=== PATIENT | male | born 2000 | race Caucasian/White ===

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

== ENCOUNTER → 2019-09-11 | Outpatient (CLI) | payer OTHER ==
[2019-09-11 12:01] LABS: Basophils % (A) 0 %; Eosinophils % (A) 1 %; HCT 46.3 % (39.0-53.0); HGB 14.9 gm/dL (13.0-17.5); Lymphocytes # (A) 1.7 k/uL (1.0-4.8); Lymphocytes % (A) 36 %; MCH 28.2 pg (25.0-35.0); MCHC 32.2 g/dL (31.0-37.0); MCV 87.8 fL (80.0-100.0); Mean Platelet Volume 7.8; Monocytes # (A) 0.3 k/uL (0-1.0); Monocytes % (A) 7 %; Neutrophils # (A) 2.6 k/uL (1.3-7.7); Neutrophils % (A) 53 %; Platelet Count 225 k/uL (150-450); RBC 5.28 m/uL (4.30-5.90); RDW 11.9 % (11.5-15.5); WBC 4.8 k/uL (4.0-11.0)
[2019-09-11 17:24] LABS: Albumin 4.5 g/dL (3.80-4.90); Albumin/Globulin Ratio 2.5 (1.60-3.17); Anion Gap 8.9 mmol/L (4.00-12.00); BUN/Creat Ratio 12.22 Ratio (12.00-20.00); Calcium 9.8 mg/dL (8.7-10.3); Carbon Dioxide 30.1 mmol/L (21.6-31.8); Globulin 1.8 g/dL (1.6-3.3); Non-African American GFR(CKD) 123.4 (60.0-200.0); Potassium 4.3 mmol/L (3.5-5.5); Total Bilirubin 0.3 mg/dL (0.2-1.2); Total Protein 6.3 g/dL (6.2-8.2)
== END | disposition home or self-care (01) ==
LOC: LABWHC1 10:22
PROVIDERS: ATTEND Family Medicine
DX: F84.0 Autistic disorder (principal)
CPT/HCPCS: 36415; 80053; 84443; 85025

== ENCOUNTER → 2020-11-27 | Outpatient (CLI) | payer OTHER ==
[2020-11-27 19:51] LABS: Basophils # (A) 0.01 X 10*3/uL (0.00-0.10); Basophils % (A) 0.2 %; Eosinophils # (A) 0.05 X 10*3/uL (0.04-0.35); HCT 49.8 % (39.6-50.0); HGB 15.9 g/dL (13.0-17.0); Lymphocytes # (A) 1.96 X 10*3/uL (0.90-5.00); Lymphocytes % (A) 40.3 %; MCH 27.7 pg (27.0-32.0); MCHC 31.9 g/dL (32.0-37.0); MCV 86.9 fL (80.0-97.0); Monocytes # (A) 0.44 X 10*3/uL (0.20-1.00); Monocytes % (A) 9.1 %; Neutrophils # (A) 2.38 X 10*3/uL (1.80-7.70); Platelet Count 280 X 10*3/uL (140-440); RBC 5.73 X 10*6/uL (4.40-5.60); RDW 12.4 % (11.5-14.5); WBC 4.86 X 10*3/uL (4.50-10.00)
[2020-11-27 21:27] LABS: Hemoglobin A1C 5.4 % (4.0-6.0)
[2020-11-28 02:57] LABS: ALT 16 U/L (10-49); AST 16 U/L (14-35); African American GFR (CKD) 110.6 (60.0-200.0); Albumin/Globulin Ratio 2.39 (1.60-3.17); Alkaline Phosphatase 99 U/L (41-126); Bilirubin, Conjugated <0.20 mg/dL (0.20-0.40); Chol/HDL Ratio 3.64; Cholesterol 182 mg/dL (0-200); Globulin 2.3 g/dL (1.6-3.3); Glucose 120 mg/dL (70-110); LDL Cholesterol,Calculated 121.4 mg/dL (0.0-131.0); Non-African American GFR(CKD) 95.5 (60.0-200.0); Total Bilirubin 0.3 mg/dL (0.3-1.2); Total Protein 7.8 g/dL (6.2-8.2)
== END | disposition home or self-care (01) ==
LOC: LABWHC1 11:02
PROVIDERS: ATTEND Nurse Practitioner Family
DX: Z79.899 Other long term (current) drug therapy (principal)
CPT/HCPCS: 36415; 80061; 80076; 82565; 82947; 83036; 84439; 84443; 84520; 85025; 93005

== ENCOUNTER → 2021-09-03 | Outpatient (CLI) | payer MEDICARE, OTHER ==
[2021-09-03 15:06] LABS: Basophils # (A) 0.02 X 10*3/uL (0.00-0.10); Basophils % (A) 0.5 %; Eosinophils # (A) 0.12 X 10*3/uL (0.04-0.35); Eosinophils % (A) 3.1 %; HCT 43.8 % (39.6-50.0); HGB 13.7 g/dL (13.0-17.0); Immature Grans, Automated 0.3 %; Lymphocytes # (A) 1.36 X 10*3/uL (0.90-5.00); Lymphocytes % (A) 34.9 %; MCH 27.5 pg (27.0-32.0); MCHC 31.3 g/dL (32.0-37.0); MCV 87.8 fL (80.0-97.0); Mean Platelet Volume 10.1 fL (9.5-12.2); Monocytes % (A) 10.3 %; NRBC Per 100 WBC 0 /100 WBCS (0.0-0.0); Neutrophils # (A) 1.99 X 10*3/uL (1.80-7.70); Neutrophils % (A) 50.9 %; Platelet Count 256 X 10*3/uL (140-440); RBC 4.99 X 10*6/uL (4.40-5.60); RDW 12.5 % (11.5-14.5)
[2021-09-03 15:29] LABS: African American GFR (CKD) 124.1 (60.0-200.0); Albumin 4.5 g/dL (3.8-4.9); Albumin/Globulin Ratio 2.25 (1.60-3.17); Anion Gap 10.2 mmol/L (10.00-18.00); BUN/Creat Ratio 12.7 Ratio (12.00-20.00); Blood Urea Nitrogen 12.7 mg/dL (9.0-27.0); Calcium 9.4 mg/dL (8.7-10.3); Carbon Dioxide 27.8 mmol/L (20.0-27.5); Non-African American GFR(CKD) 107.1 (60.0-200.0); Potassium 4.5 mmol/L (3.5-5.5); Total Bilirubin 0.3 mg/dL (0.30-1.20); Total Protein 6.5 g/dL (6.2-8.2)
== END | disposition home or self-care (01) ==
LOC: LABWHC1 08:27
PROVIDERS: ATTEND Family Medicine
DX: Z00.00 Encounter for general adult medical examination without abnormal findings (principal); E55.9 Vitamin D deficiency, unspecified
CPT/HCPCS: 36415; 80053; 82306; 84443; 85025

== ENCOUNTER 2021-11-06 11:39 | Emergency (ER) | payer MEDICARE, OTHER ==
[2021-11-06 11:44] VITALS: BP 107/40; TEMP 98.6
[2021-11-06] MEDS ORDERED: IBUPROFEN 600 MG TAB PO STA (13:05)
[2021-11-06 13:19] VITALS: PULSE 97; RESP 16
--- NOTE | 2021-11-06 14:37 | XR ---
EXAMINATION TYPE: XR chest 2V DATE OF EXAM: 11/06/2021 COMPARISON: 03/21/2004 HISTORY: cough TECHNIQUE: Frontal and lateral views of the chest are obtained. FINDINGS: There is no focal air space opacity. No evidence for pneumothorax. No pleural effusion. The cardiac silhouette size is within normal limits. The osseous structures are grossly intact. IMPRESSION: 1. No acute cardiopulmonary process.
--- NOTE | 2021-11-06 15:06 | ED ---
Headache HPI - General Chief Complaint: Headache Stated Complaint: Headaches Time Seen by Provider: 11/06/21 12:50 Mode of arrival: ambulatory Limitations: no limitations - History of Present Illness Initial Comments: 20-year-old male past nuchal history of autism, ODD presents emergency Department with headache and a cough which started 2 days ago. States that the headache is not the worse headache of his life. Describes it as a 2 out of 10, dull and global. He has not attempted to take any medications for her symptoms. No associated fever. He denies any visual changes. No neck pain or stiffness. No head trauma recently. He denies any sick contacts with similar symptoms. The cough is nonproductive. No chest pain. No shortness of breath. No previous history of pulmonary or cardiac issues. No history of DVT or PE. No other alleviating, precipitating or modifying factors - Related Data Home Medications Medication Instructions Recorded Confirmed ARIPiprazole [Abilify] 2 mg PO QAM 03/06/16 03/06/16 Dexmethylphenidate HCl [Focalin Xr] 30 mg PO DAILY 03/06/16 03/06/16 Melatonin 9 mg PO HS 03/06/16 03/06/16 QUEtiapine [SEROquel] 150 mg PO BID 03/06/16 03/06/16 QUEtiapine [SEROquel] 200 mg PO HS 03/06/16 03/06/16 Sertraline HCl [Zoloft] 200 mg PO QAM 03/06/16 03/06/16 bisacodyL [Dulcolax] 20 mg PO DAILY 03/06/16 03/06/16 cloNIDine HCL [Catapres] 0.4 mg PO 03/06/16 03/06/16 Previous Rx's Medication Instructions Recorded Albuterol Inhaler [Ventolin Hfa 1 puff INHALATION RT-QID #8 gm 11/06/21 Inhaler] Benzonatate [Tessalon Perles] 100 mg PO TID PRN #15 cap 11/06/21 Ibuprofen [Motrin] 600 mg PO Q6HR PRN #20 tab 11/06/21 Allergies Allergy/AdvReac Type Severity Reaction Status Date / Time amoxicillin trihydrate Allergy Rash/Hives Verified 11/06/21 11:44 [From Augmentin] potassium clavulanate Allergy Rash/Hives Verified 11/06/21 11:44 [From Augmentin] lorazepam [From Ativan] AdvReac Unknown Verified 11/06/21 11:44 midazolam HCl [From Versed] AdvReac Unknown Verified 11/06/21 11:44 Review of Systems ROS Statement: Those systems with pertinent positive or pertinent negative responses have been documented in the HPI. ROS Other: All systems not noted in ROS Statement are negative. Past Medical History Additional Past Medical History / Comment(s): Autism, ODD History of Any Multi-Drug Resistant Organisms: None Reported Past Surgical History: No Surgical Hx Reported Past Psychological History: ADD/ADHD, Anxiety, Depression Smoking Status: Vaper Past Alcohol Use History: None Reported Past Drug Use History: None Reported General Exam Limitations: no limitations General appearance: alert, in no apparent distress Head exam: Present: atraumatic, normocephalic, normal inspection Eye exam: Present: normal appearance, PERRL, EOMI. Absent: scleral icterus, conjunctival injection, periorbital swelling ENT exam: Present: normal exam, mucous membranes moist Neck exam: Present: normal inspection. Absent: tenderness, meningismus, lymphadenopathy Respiratory exam: Present: normal lung sounds bilaterally. Absent: respiratory distress, wheezes, rales, rhonchi, stridor Cardiovascular Exam: Present: normal rhythm, tachycardia, normal heart sounds. Absent: systolic murmur, diastolic murmur, rubs, gallop, clicks GI/Abdominal exam: Present: soft, normal bowel sounds. Absent: distended, tend erness, guarding, rebound, rigid Extremities exam: Present: normal inspection, full ROM, normal capillary refill. Absent: tenderness, pedal edema, joint swelling, calf tenderness Back exam: Present: normal inspection Neurological exam: Present: alert, oriented X3, CN II-XII intact Psychiatric exam: Present: normal affect, normal mood Skin exam: Present: warm, dry, intact, normal color. Absent: rash Course Vital Signs 11/06/21 11/06/21 11:41 13:18 Temperature 98.6 F Pulse Rate 114 H 97 Respiratory 20 16 Rate Blood Pressure 107/40 O2 Sat by Pulse 115 H 98 Oximetry Medical Decision Making - Medical Decision Making On arrival patient is placed in the hallway 10. A thorough history and physical exam was performed. Patient is given Motrin for his headache. He is swabbed for Coban which is negative. Chest x-rays performed which demonstrates no acute process. Patient is reevaluated and has complete resolution of his symptoms. He will be discharged home at this time is to follow-up with his primary care doctor in 2-4 days. He is given a prescription for an inhaler and Tessalon Perles for his cough. Return to the emergency room for any new or worsening symptoms here patient agreed with treatment plan and was discharged home in stable condition - Lab Data Lab Results 11/06/21 Range/Units 13:18 Coronavirus (PCR) Not Detected (Not Detectd) Disposition Clinical Impression: Headache, Cough Disposition: HOME SELF-CARE Condition: Stable Instructions (If sedation given, give patient instructions): Upper Respiratory Infection (ED), Acute Headache (ED) Additional Instructions: Pleast take the Motrin every 6 hours as needed for headache. Use the inhaler every 4 hours. Return to the emergency room for any new or worsening symptoms Prescriptions: Ibuprofen [Motrin] 600 mg PO Q6HR PRN #20 tab PRN Reason: Pain Benzonatate [Tessalon Perles] 100 mg PO TID PRN #15 cap PRN Reason: Cough Albuterol Inhaler [Ventolin Hfa Inhaler] 1 puff INHALATION RT-QID #8 gm Is patient prescribed a controlled substance at d/c from ED?: No Referrals: Ethan Mckeon MD [Primary Care Provider] - 1-2 days Time of Disposition: 15:06
== END 2021-11-06 15:32 | disposition home or self-care (01) ==
LOC: EC 11:39
DX: R51.9 Headache, unspecified (principal); R05.9 Cough, unspecified; F17.290 Nicotine dependence, other tobacco product, uncomplicated; Z88.0 Allergy status to penicillin; Z20.822 Contact with and (suspected) exposure to COVID-19; Z88.1 Allergy status to other antibiotic agents; Z88.8 Allergy status to other drugs, medicaments and biological substances
CPT/HCPCS: 71046; 87635; 99284

== ENCOUNTER → 2022-04-27 | Outpatient (CLI) | payer MEDICARE, OTHER ==
[2022-04-27 11:38] LABS: ALT 26 U/L (10-49); AST 24 U/L (14-35); African American GFR (CKD) 109.9 (60.0-200.0); Albumin 4.6 g/dL (3.8-4.9); Albumin/Globulin Ratio 2.09 (1.60-3.17); Alkaline Phosphatase 95 U/L (41-126); Bilirubin, Conjugated <0.20 mg/dL (0.20-0.40); Blood Urea Nitrogen 15.7 mg/dL (9.0-27.0); Chol/HDL Ratio 3.03 Ratio; Globulin 2.2 g/dL (1.6-3.3); Glucose 101 mg/dL (70-110); LDL Cholesterol,Calculated 82.9 mg/dL (0.0-131.0); Non-African American GFR(CKD) 94.8 (60.0-200.0); Total Bilirubin <0.15 mg/dL (0.30-1.20); Total Protein 6.8 g/dL (6.2-8.2); VLDL Calculation 14.94 mg/dL (5.00-40.00)
== END | disposition home or self-care (01) ==
LOC: LABWHC1 07:47
PROVIDERS: ATTEND Nurse Practitioner Family
DX: Z79.899 Other long term (current) drug therapy (principal)
CPT/HCPCS: 36415; 80061; 80076; 82565; 82947; 83036; 84439; 84443; 84520

== ENCOUNTER 2023-02-12 15:22 | Emergency (ER) | payer MEDICARE, OTHER ==
[2023-02-12 15:26] VITALS: BP 122/83; PULSE 105; RESP 20; TEMP 98
--- NOTE | 2023-02-12 15:39 | ED ---
General Adult HPI - General Chief complaint: Allergic Reaction Stated complaint: REACTION TO MEDS Time Seen by Provider: 02/12/23 15:28 Source: patient, RN notes reviewed, Caregiver Mode of arrival: ambulatory Limitations: no limitations - History of Present Illness Initial comments: 22-year-old male presents emergency department for medication ingestion. Patient is a group Flomax and received Ativan in which he was told he was ALLERGIC to the past. He states he was taken for several years and then once had a rash in which she was told it could be from the Ativan. He states he never had anaphylactic reaction no difficulty breathing or swallowing at that time. Patient received this medication over 45 minutes ago and had 0 symptoms. Patient denies difficulty swallowing breathing abdominal pain rash or any associated symptoms. He states he feels like he is at his normal baseline. - Related Data Home Medications Medication Instructions Recorded Confirmed ARIPiprazole [Abilify] 2 mg PO QAM 03/06/16 03/06/16 Dexmethylphenidate HCl [Focalin Xr] 30 mg PO DAILY 03/06/16 03/06/16 Melatonin 9 mg PO HS 03/06/16 03/06/16 QUEtiapine [SEROquel] 150 mg PO BID 03/06/16 03/06/16 QUEtiapine [SEROquel] 200 mg PO HS 03/06/16 03/06/16 Sertraline HCl [Zoloft] 200 mg PO QAM 03/06/16 03/06/16 bisacodyL [Dulcolax] 20 mg PO DAILY 03/06/16 03/06/16 cloNIDine HCL [Catapres] 0.4 mg PO HS 03/06/16 03/06/16 Previous Rx's Medication Instructions Recorded Albuterol Inhaler [Ventolin Hfa 1 puff INHALATION RT-QID #8 gm 11/06/21 Inhaler] Benzonatate [Tessalon Perles] 100 mg PO TID PRN #15 cap 11/06/21 Ibuprofen [Motrin] 600 mg PO Q6HR PRN #20 tab 11/06/21 Allergies Allergy/AdvReac Type Severity Reaction Status Date / Time amoxicillin trihydrate Allergy Rash/Hives Verified 02/12/23 15:26 [From Augmentin] potassium clavulanate Allergy Rash/Hives Verified 02/12/23 15:26 [From Augmentin] lorazepam [From Ativan] AdvReac Unknown Verified 02/12/23 15:26 midazolam HCl [From Versed] AdvReac Unknown Verified 02/12/23 15:26 Review of Systems ROS Statement: Those systems with pertinent positive or pertinent negative responses have been documented in the HPI. ROS Other: All systems not noted in ROS Statement are negative. Past Medical History Additional Past Medical History / Comment(s): Autism, ODD History of Any Multi-Drug Resistant Organisms: None Reported Past Surgical History: No Surgical Hx Reported Past Psychological History: ADD/ADHD, Anxiety, Depression Smoking Status: Vaper Past Alcohol Use History: None Reported Past Drug Use History: None Reported General Exam Limitations: no limitations General appearance: alert, in no apparent distress Head exam: Present: atraumatic, normocephalic, normal inspection Eye exam: Present: normal appearance, PERRL, EOMI. Absent: scleral icterus, conjunctival injection, periorbital swelling ENT exam: Present: normal exam, mucous membranes moist Neck exam: Present: normal inspection, full ROM. Absent: tenderness, meningismus, lymphadenopathy Respiratory exam: Present: normal lung sounds bilaterally. Absent: respiratory distress, wheezes, rales, rhonchi, stridor Cardiovascular Exam: Present: regular rate, normal rhythm, normal heart sounds. Absent: systolic murmur, diastolic murmur, rubs, gallop, clicks GI/Abdominal exam: Present: soft, normal bowel sounds. Absent: distended, tenderness, guarding, rebound, rigid Course Vital Signs 02/12/23 15:24 Temperature 98 F Pulse Rate 105 H Respiratory 20 Rate Blood Pressure 122/83 O2 Sat by Pulse 98 Oximetry Medical Decision Making - Medical Decision Making Was pt. sent in by a medical professional or institution (, PA, PUPPY SITTER, urgent care, hospital, or [facility]...) When possible be specific @ -No Did you speak to anyone other than the patient for history (EMS, parent, family, police, friend...)? What history was obtained from this source @ -Caregiver giving past alcohol history, medications given and current prescribed medications Did you review nursing and triage notes (agree or disagree)? Why? @ -I reviewed and agree with nursing and triage notes Were old charts reviewed (outside hosp., previous admission, EMS record, old EKG, old radiological studies, urgent care reports/EKG's, [facility] records)? Report findings @ -No old charts were reviewed Differential Diagnosis (chest pain, altered mental status, abdominal pain women, abdominal pain men, vaginal bleeding, weakness, fever, dyspnea, syncope, headache, dizziness, GI bleed, back pain, seizure, CVA, palpatations, mental health, musculoskeletal)? @ -Medication ingestion, reaction EKG interpreted by me (3pts min.). @ -[None X-rays interpreted by me (1pt min.). @ -None done CT interpreted by me (1pt min.). @ -None done U/S interpreted by me (1pt. min.). @ -None done What testing was considered but not performed or refused? (CT, X-rays, U/S, labs)? Why? @ -None What meds were considered but not given or refused? Why? @ -None Did you discuss the management of the patient with other professionals (professionals i.e. , PA, PUPPY SITTER, lab, RT, psych nurse, social secretary, department head college or university, teacher, medical corps officer, case management coordinator)? Give summary @ -No Was smoking cessation discussed for >3mins.? @ -No Was critical care preformed (if so, how long)? @ -No Were there social determinants of health that impacted care today? How? (Homelessness, low income, unemployed, alcoholism, drug addiction, transportation, low edu. Level, literacy, decrease access to med. care, intermediate, re hab)? @ -No Was there de-escalation of care discussed even if they declined (Discuss DNR or withdrawal of care, Hospice)? DNR status @ -No What co-morbidities impacted this encounter? (DM, HTN, Smoking, COPD, CAD, Cancer, CVA, ARF, Chemo, Hep., AIDS, mental health diagnosis, sleep apnea, morbid obesity)? @ -None Was patient admitted / discharged? Hospital course, mention meds given and route, prescriptions, significant lab abnormalities, going to OR and other pertinent info. @ -Discharge patient is taking Ativan in the past and was once thought to be ALLERGIC but it was unclear. Patient has no current symptoms. Patient is questioned be discharged to be fairly stable for discharge he is return for any change symptoms. Undiagnosed new problem with uncertain prognosis? @ -No Drug Therapy requiring intensive monitoring for toxicity (Heparin, Nitro, Insulin, Cardizem)? @ -No Were any procedures done? @ -No Diagnosis/symptom? @ -Accidental medication ingestion Acute, or Chronic, or Acute on Chronic? @ -Acute Uncomplicated (without systemic symptoms) or Complicated (systemic symptoms)? @ -Uncomplicated Side effects of treatment? @ -No Exacerbation, Progression, or Severe Exacerbation? @ -No Poses a threat to life or bodily function? How? (Chest pain, [place], [place], pneumonia, PE, COPD, DKA, ARF, appy, cholecystitis, CVA, Diverticulitis, Homicidal, Suicidal, threat to staff... and all critical care pts) @ -No Disposition Clinical Impression: Accidental drug ingestion Disposition: HOME SELF-CARE Condition: Stable Instructions (If sedation given, give patient instructions): Lorazepam (By mouth) Additional Instructions: Please return to the Emergency Department if symptoms worsen or any other concerns. Is patient prescribed a controlled substance at d/c from ED?: No Referrals: Ethan Mckeon [Primary Care Provider] - 1-2 days Time of Disposition: 15:39
== END 2023-02-12 16:03 | disposition home or self-care (01) ==
LOC: EC 15:22
DX: R21 Rash and other nonspecific skin eruption (principal); T42.4X5A Adverse effect of benzodiazepines, initial encounter; F32.A Depression, unspecified; F41.9 Anxiety disorder, unspecified; F17.290 Nicotine dependence, other tobacco product, uncomplicated; Z88.0 Allergy status to penicillin; Z88.1 Allergy status to other antibiotic agents; Z88.8 Allergy status to other drugs, medicaments and biological substances; Z79.899 Other long term (current) drug therapy
CPT/HCPCS: 99283

== ENCOUNTER → 2023-04-14 | Outpatient (CLI) | payer MEDICARE, OTHER ==
[2023-04-14 16:29] LABS: Basophils # (A) 0.03 X 10*3/uL (0.00-0.10); Basophils % (A) 0.6 %; Eosinophils # (A) 0.02 X 10*3/uL (0.04-0.35); Eosinophils % (A) 0.4 %; HCT 46.6 % (39.6-50.0); HGB 15.1 d/dL (13.0-17.0); Lymphocytes # (A) 1.51 X 10*3/uL (0.90-5.00); MCH 27.8 pg (27.0-32.0); MCHC 32.4 d/dL (32.0-37.0); MCV 85.8 FL (80.0-97.0); Mean Platelet Volume 9.6 FL (9.5-12.2); Monocytes % (A) 10.3 %; NRBC Per 100 WBC 0 X 10*3/uL (0.00-0.01); Neutrophils % (A) 57.5 %; Platelet Count 235 X 10*3/uL (140-440); RBC 5.43 X 10*6/uL (4.40-5.60); RDW 12.3 % (11.5-14.5); WBC 4.87 X 10*3/uL (4.50-10.00)
[2023-04-14 16:52] LABS: ALT 18 U/L (10-49); AST 22 U/L (14-35); Albumin 4.5 d/dL (3.8-4.9); Albumin/Globulin Ratio 2.25 Ratio (1.60-3.17); Alkaline Phosphatase 79 U/L (41-126); Bilirubin, Conjugated <0.20 mg/dL (0.20-0.40); Bilirubin,Unconjugated >0.10 mg/dL (0.20-1.00); Blood Urea Nitrogen 12.3 mg/dL (9.0-27.0); Chol/HDL Ratio 2.93 Ratio; Glucose 91 mg/dL (70-110); LDL Cholesterol,Calculated 95.8 mg/dL (0.0-131.0); T4, Free (Free Thyroxine) 0.99 ng/dL (0.80-1.80); Total Bilirubin 0.3 mg/dL (0.3-1.2); Total Protein 6.5 d/dL (6.2-8.2); VLDL Calculation 6.92 mg/dL (5.00-40.00)
== END | disposition home or self-care (01) ==
LOC: LABWHC1 10:54
PROVIDERS: ATTEND Family Medicine
DX: Z51.81 Encounter for therapeutic drug level monitoring (principal); Z79.899 Other long term (current) drug therapy
CPT/HCPCS: 36415; 80061; 80076; 82565; 82947; 83036; 84439; 84443; 84520; 85025; 93005

== ENCOUNTER 2024-06-10 19:48 | Emergency (ER) | payer MEDICARE, OTHER ==
[2024-06-10 19:51] VITALS: TEMP 99.1
--- NOTE | 2024-06-10 20:55 | ED ---
ENT HPI - General Chief complaint: ENT Stated complaint: SORE THROAT Time Seen by Provider: 06/10/24 19:52 Source: patient Mode of arrival: ambulatory Limitations: no limitations - History of Present Illness Initial comments: 23-year-old male presenting with chief complaint of sore throat. Sore throat has been ongoing for few days. No difficulty breathing or swallowing. No cough congestion or fever. No nausea vomiting or abdominal pain. No drooling or voice changes. - Related Data Home Medications Medication Instructions Recorded Confirmed ARIPiprazole [Abilify] 2 mg PO QAM 03/06/16 03/06/16 Dexmethylphenidate HCl [Focalin Xr] 30 mg PO DAILY 03/06/16 03/06/16 Melatonin 9 mg PO HS 03/06/16 03/06/16 QUEtiapine [SEROquel] 150 mg PO BID 03/06/16 03/06/16 QUEtiapine [SEROquel] 200 mg PO HS 03/06/16 03/06/16 Sertraline HCl [Zoloft] 200 mg PO QAM 03/06/16 03/06/16 bisacodyL [Dulcolax] 20 mg PO DAILY 03/06/16 03/06/16 cloNIDine HCL [Catapres] 0.4 mg PO HS 03/06/16 03/06/16 Previous Rx's Medication Instructions Recorded Albuterol Inhaler [Ventolin Hfa 1 puff INHALATION RT-QID #8 gm 11/06/21 Inhaler] Benzonatate [Tessalon Perles] 100 mg PO TID PRN #15 cap 11/06/21 Ibuprofen [Motrin] 600 mg PO Q6HR PRN #20 tab 11/06/21 Cephalexin [Keflex] 500 mg PO Q6HR #40 cap 02/04/24 Sulfamethox-Tmp 800-160Mg [Bactrim 1 each PO Q12HR #20 tab 02/04/24 Ds] Allergies Allergy/AdvReac Type Severity Reaction Status Date / Time amoxicillin trihydrate Allergy Rash/Hives Verified 06/10/24 19:51 [From Augmentin] potassium clavulanate Allergy Rash/Hives Verified 06/10/24 19:51 [From Augmentin] lorazepam [From Ativan] AdvReac Unknown Verified 06/10/24 19:51 midazolam HCl [From Versed] AdvReac Unknown Verified 06/10/24 19:51 Review of Systems ROS Statement: Those systems with pertinent positive or pertinent negative responses have been documented in the HPI. ROS Other: All systems not noted in ROS Statement are negative. Past Medical History Additional Past Medical History / Comment(s): Autism, ODD History of Any Multi-Drug Resistant Organisms: None Reported Past Surgical History: No Surgical Hx Reported Past Psychological History: ADD/ADHD, Anxiety, Depression Smoking Status: Vaper Past Alcohol Use History: None Reported Past Drug Use History: None Reported General Exam Limitations: no limitations General appearance: alert, in no apparent distress Head exam: Present: atraumatic, normocephalic, normal inspection Eye exam: Present: normal appearance, EOMI ENT exam: Present: normal oropharynx, mucous membranes moist Neck exam: Present: normal inspection. Absent: meningismus Respiratory exam: Present: normal lung sounds bilaterally. Absent: respiratory distress, wheezes, rales, rhonchi, stridor Cardiovascular Exam: Present: regular rate, normal rhythm, normal heart sounds. Absent: systolic murmur, diastolic murmur, rubs, gallop, clicks Neurological exam: Present: alert, oriented X3 Psychiatric exam: Present: normal affect, normal mood Skin exam: Present: warm, dry, normal color Course Vital Signs 06/10/24 06/10/24 19:49 21:25 Temperature 99.1 F Pulse Rate 77 71 Respiratory 16 18 Rate Blood Pressure 124/67 113/64 O2 Sat by Pulse 97 99 Oximetry Medical Decision Making - Medical Decision Making Was pt. sent in by a medical professional or institution (, PA, BAKESHOP CLEANER, urgent care, hospital, or halfway...) When possible be specific @ -No Did you speak to anyone other than the patient for history (EMS, parent, family, police, friend...)? What history was obtained from this source @ -No Did you review nursing and triage notes (agree or disagree)? Why? @ -I reviewed and agree with nursing and triage notes Were old charts reviewed (outside hosp., previous admission, EMS record, old EKG, old radiological studies, urgent care reports/EKG's, halfway records)? Report findings @ -No old charts were reviewed Differential Diagnosis (chest pain, altered mental status, abdominal pain women, abdominal pain men, vaginal bleeding, weakness, fever, dyspnea, syncope, headache, dizziness, GI bleed, back pain, seizure, CVA, palpatations, mental health, musculoskeletal)? @ -Differential includes strep throat, viral pharyngitis, peritonsillar abscess, this is not an all-inclusive list EKG interpreted by me (3pts min.). @ -As above X-rays interpreted by me (1pt min.). @ -None done CT interpreted by me (1pt min.). @ -None done U/S interpreted by me (1pt. min.). @ -None done What testing was considered but not performed or refused? (CT, X-rays, U/S, labs)? Why? @ -None What meds were considered but not given or refused? Why? @ -None Did you discuss the management of the patient with other professionals (professionals i.e. , PA, BAKESHOP CLEANER, lab, RT, psych nurse, geriatric social worker, photographic plate maker, teacher, contracting officer, immigration case manager)? Give summary @ -No Was smoking cessation discussed for >3mins.? @ -No Was critical care preformed (if so, how long)? @ -No Were there social determinants of health that impacted care today? How? (Homelessness, low income, unemployed, alcoholism, drug addiction, transportation, low edu. Level, literacy, decrease access to med. care, longterm, rehab)? @ -No Was there de-escalation of care discussed even if they declined (Discuss DNR or withdrawal of care, Hospice)? DNR status @ -No What co-morbidities impacted this encounter? (DM, HTN, Smoking, COPD, CAD, Cancer, CVA, ARF, Chemo, Hep., AIDS, mental health diagnosis, sleep apnea, morbid obesity)? @ -None Was patient admitted / discharged? Hospital course, mention meds given and route, prescriptions, significant lab abnormalities, going to OR and other pertinent info. @ -23-year-old male presenting with chief complaint of sore throat. On examination there is normal posterior pharynx. No red flag symptoms. He is negative for strep throat. Educated on today's findings and supportive management. He requests a work note. Discharge. Follow-up with PCP. Report back to ER with any new or worsening symptoms. Discussed return parameters and answered all questions. Patient conveyed verbal understanding and agreed to the plan. I discussed this case in detail with my attending Dr. Rolon Undiagnosed new problem with uncertain prognosis? @ -No Drug Therapy requiring intensive monitoring for toxicity (Heparin, Nitro, Insulin, Cardizem)? @ -No Were any procedures done? @ -No Diagnosis/symptom? @ -Pharyngitis Acute, or Chronic, or Acute on Chronic? @ -Acute Uncomplicated (without systemic symptoms) or Complicated (systemic symptoms)? @ -Uncomplicated Side effects of treatment? @ -No Exacerbation, Progression, or Severe Exacerbation? @ -No Poses a threat to life or bodily function? How? (Chest pain, [place], [place], pneumonia, PE, COPD, DKA, ARF, appy, cholecystitis, CVA, Diverticulitis, Homicidal, Suicidal, threat to staff... and all critical care pts) @ -Unlikely - Lab Data Lab Results 06/10/24 Range/Units 20:09 Group A Strep (PCR) NOT DETECTED (Not Detectd) Disposition Clinical Impression: Acute viral pharyngitis Disposition: HOME SELF-CARE Condition: Good Instructions (If sedation given, give patient instructions): Pharyngitis (ED) Additional Instructions: Follow-up with PCP. Report back to ER with any new or worsening symptoms. Is patient prescribed a controlled substance at d/c from ED?: No Referrals: Ethan Mckeon [Primary Care Provider] - 1-2 days Time of Disposition: 20:55
[2024-06-10] MEDS: IBUPROFEN 600 MG STARTER PACK 4 TAB BTL PO STA (21:23)
[2024-06-10 21:27] VITALS: BP 113/64; PULSE 71; RESP 18
== END 2024-06-10 21:25 | disposition home or self-care (01) ==
LOC: EC 19:48
DX: J02.8 Acute pharyngitis due to other specified organisms (principal); F17.290 Nicotine dependence, other tobacco product, uncomplicated; Z88.0 Allergy status to penicillin; Z88.1 Allergy status to other antibiotic agents; Z88.8 Allergy status to other drugs, medicaments and biological substances
CPT/HCPCS: 87651; 99283

== ENCOUNTER → 2024-11-23 | Outpatient (CLI) | payer MEDICARE, OTHER ==
--- NOTE | 2024-11-23 13:08 | XR ---
EXAMINATION TYPE: XR tibia fibula RT DATE OF EXAM: 11/23/2024 12:35 PM COMPARISON: None CLINICAL INDICATION: Male, 24 years old with history of M89.8X6 OTHER SPECIFIED DISORDERS OF BONE, LO WER L; PHH, pain TECHNIQUE: 2 views FINDINGS: Knee and ankle articulations are grossly intact. No acute fracture, subluxation, dislocatio n. No periostitis or osteolysis. IMPRESSION: No acute osseous abnormality seen. [facility], Workstation: [facility], 11/23/2024 1:06 PM
== END | disposition home or self-care (01) ==
LOC: RADXRMAIN 12:23
PROVIDERS: ATTEND Family Medicine
DX: M89.8X6 Other specified disorders of bone, lower leg (principal)